=== PATIENT | male | born 1995 | race Caucasian/White ===

== ENCOUNTER 2024-05-21 14:47 | Emergency (ER) | payer OTHER, BC ==
[2024-05-21 15:02] VITALS: RESP 18; TEMP 98.6
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
[2024-05-21] MEDS: KETOROLAC 15 MG/ML 1 ML VIAL IM STA (17:07)
[2024-05-21] MEDS: ACETAMINOPHEN TAB 500 MG TAB PO STA (17:08)
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
[2024-05-21 18:03] VITALS: BP 123/76; PULSE 79
== END 2024-05-21 18:04 | disposition home or self-care (01) ==
LOC: EC 14:47
DX: S63.92XA Sprain of unspecified part of left wrist and hand, initial encounter (principal); M25.511 Pain in right shoulder; V49.40XA Driver injured in collision with unspecified motor vehicles in traffic accident, initial encounter; Y92.410 Unspecified street and highway as the place of occurrence of the external cause
CPT/HCPCS: 73000; 73130; 71046; 72125; 70450; 99285; 96372; J1885

== ENCOUNTER 2024-10-04 07:21 | Emergency (ER) | payer BC ==
[2024-10-04] MEDS: LIDOCAINE 1% INJ 10MG/ML (20 ML MDV) SQ ONE (07:33)
--- NOTE | 2024-10-04 07:33 | ED ---
ENT HPI - General Chief complaint: Dental/Oral Stated complaint: facial swelling Time Seen by Provider: 10/04/24 07:31 Source: patient, RN notes reviewed Mode of arrival: ambulatory Limitations: no limitations - History of Present Illness Initial comments: 29-year-old male presenting to the ER with a chief complaint of right cheek swelling. Patient states last night he started noticed pain in his right upper teeth. He states this morning he noticed significant swelling to his right cheek and increase in pain. He states he does not follow-up regularly with a dentist. He denies any drainage, foul taste, difficulty swallowing or breathing. Denies tongue swelling. Patient does report he has poor oral hygiene and a fractured tooth on that side. He denies any recent antibiotic use. Denies any fevers, chills, night sweats or other complaints. - Related Data Previous Rx's Medication Instructions Recorded Amoxic-Pot Clav 875-125Mg 1 tab PO Q12HR 7 Days #14 tab 10/04/24 [Augmentin 875-125] Allergies Allergy/AdvReac Type Severity Reaction Status Date / Time No Known Allergies Allergy Verified 05/21/24 15:03 Review of Systems ROS Statement: Those systems with pertinent positive or pertinent negative responses have been documented in the HPI. ROS Other: All systems not noted in ROS Statement are negative. Past Medical History Past Medical History: No Reported History Past Surgical History: No Surgical Hx Reported Smoking Status: Never smoker Past Alcohol Use History: None Reported Past Drug Use History: None Reported General Exam Limitations: no limitations General appearance: alert, in no apparent distress ENT exam: Present: other (Multiple dental caries with fractured teeth. There is a drainable abscess to right upper jaw. No drainage present right cheek swelling and tenderness. No overlying skin changes. Oropharynx patent. No tongue swelling.) Neck exam: Present: normal inspection. Absent: tenderness, meningismus, lymphadenopathy Respiratory exam: Present: normal lung sounds bilaterally. Absent: respiratory distress, wheezes, rales, rhonchi, stridor Cardiovascular Exam: Present: regular rate, normal rhythm, normal heart sounds. Absent: systolic murmur, diastolic murmur, rubs, gallop, clicks Neurological exam: Present: alert, oriented X3, CN II-XII intact Skin exam: Present: warm, dry, intact, normal color. Absent: rash Course Vital Signs 10/04/24 10/04/24 07:22 08:07 Temperature 99.6 F 98.9 F Pulse Rate 100 91 Respiratory 20 18 Rate Blood Pressure 139/87 131/79 O2 Sat by Pulse 98 98 Oximetry Procedures - Incision & Drainage Consent Obtained: verbal consent Indication: dental abscess Site: oral Size (cm): 2 Anesthetic Used: lidocaine 1%, without epi Amount (mLs): 1 Sterile Field Used?: Yes Scalpel Used: #11 Ultrasound used: No Needle Aspiration Performed?: Yes I&D Drainage Obtained: Pus, Blood Insertion of drain: No Patient Tolerated Procedure: well Medical Decision Making - Medical Decision Making Was pt. sent in by a medical professional or institution (, ADEN, SUPERVISOR [employer], urgent care, hospital, or skilled nursing...) When possible be specific @ -No Did you speak to anyone other than the patient for history (EMS, parent, family, police, friend...)? What history was obtained from this source @ -No Did you review nursing and triage notes (agree or disagree)? Why? @ -I reviewed and agree with nursing and triage notes Were old charts reviewed (outside hosp., previous admission, EMS record, old EKG, old radiological studies, urgent care reports/EKG's, skilled nursing records)? Report findings @ -No old charts were reviewed Differential Diagnosis (chest pain, altered mental status, abdominal pain women, abdominal pain men, vaginal bleeding, weakness, fever, dyspnea, syncope, headache, dizziness, GI bleed, back pain, seizure, CVA, palpatations, mental health, musculoskeletal)? @ -Dental abscess, fractured tooth, pulpitis, Harrison angina... This list is not meant to be all-inclusive EKG interpreted by me (3pts min.). @ -None done X-rays interpreted by me (1pt min.). @ -None done CT interpreted by me (1pt min.). @ -None done U/S interpreted by me (1pt. min.). @ -None done What testing was considered but not performed or refused? (CT, X-rays, U/S, labs)? Why? @ -None What meds were considered but not given or refused? Why? @ -None Did you discuss the management of the patient with other professionals (professionals i.e. , ADEN, SU[employer], lab, RT, psych nurse, high school social studies tutor, shipping and receiving coordinator, teacher, surveillance sensor officer, rn case mgr)? Give summary @ -No Was smoking cessation discussed for >3mins.? @ -No Was critical care preformed (if so, how long)? @ -No Were there social determinants of health that impacted care today? How? (Homelessness, low income, unemployed, alcoholism, drug addiction, transportation, low edu. Level, literacy, decrease access to med. care, fpc, rehab)? @ -No Was there de-escalation of care discussed even if they declined (Discuss DNR or withdrawal of care, Hospice)? DNR status @ -No What co-morbidities impacted this encounter? (DM, HTN, Smoking, COPD, CAD, Cancer, CVA, ARF, Chemo, Hep., AIDS, mental health diagnosis, sleep apnea, morbid obesity)? @ -None Was patient admitted / discharged? Hospital course, mention meds given and route, prescriptions, significant lab abnormalities, going to OR and other pertinent info. @ -Discharged. 29-year-old male presented to the ER for chief complaint of right cheek swelling. History and physical exam completed. Vitals stable. Patient appears well-developed and well-nourished in no signs of acute distress. Poor dentition noted on exam with area of edema and fluctuance adjacent to right 2nd upper molar. Edema and tenderness noted to right cheek. Findings consistent with a dental abscess. No oropharynx or tongue swelling. Oropharynx is patent. I&D performed with expressed purulent drainage. Patient will be started Augmentin, first dose in the ER. I strongly recommended patient follow- up with a dentist in the next 24 to 48 hours for recheck, referral given. Strict return parameters discussed. Patient discharged in stable condition with follow-up to PCP. Patient verbally expressed understanding and agreement with care plan. Case discussed with ED attending, Dr. White. Undiagnosed new problem with uncertain prognosis? @ -No Drug Therapy requiring intensive monitoring for toxicity (Heparin, Nitro, Insulin, Cardizem)? @ -No Were any procedures done? @ -Yes, I&D Diagnosis/symptom? @ -Dental abscess Acute, or Chronic, or Acute on Chronic? @ -Acute Uncomplicated (without systemic symptoms) or Complicated (systemic symptoms)? @ -Uncomplicated Side effects of treatment? @ -No Exacerbation, Progression, or Severe Exacerbation? @ -No Poses a threat to life or bodily function? How? (Chest pain, [place], [place], pneumonia, PE, COPD, DKA, ARF, appy, cholecystitis, CVA, Diverticulitis, Homicidal, Suicidal, threat to staff... and all critical care pts) @ -No Disposition Clinical Impression: Dental abscess Disposition: HOME SELF-CARE Condition: Stable Instructions (If sedation given, give patient instructions): Dental Abscess (ED) Additional Instructions: Follow-up with a dentist in the next 24 to 48 hours. Continue to massage cheek to aid with drainage. Take Augmentin as prescribed. You may take OTC Tylenol and Motrin for pain control. Return to the ER for any new to worsening symptoms. Prescriptions: Amoxic-Pot Clav 875-125Mg [Augmentin 875-125] 1 tab PO Q12HR 7 Days #14 tab Is patient prescribed a controlled substance at d/c from ED?: No Referrals: None,Stated [Primary Care Provider] - 1-2 days Ludwig Prasad DDS [STAFF PHYSICIAN] - 1-2 days Kaitlynn Mendes DDS [STAFF PHYSICIAN] - 1-2 days Forms: Area PCPs Time of Disposition: 07:50
[2024-10-04] MEDS: AMOXIC-POT CLAV 875-125MG 1 EACH TAB PO STA (07:53)
[2024-10-04 08:08] VITALS: BP 131/79; PULSE 91; RESP 18; TEMP 98.9
== END 2024-10-04 08:09 | disposition home or self-care (01) ==
LOC: EC 07:21
DX: K04.7 Periapical abscess without sinus (principal)
CPT/HCPCS: 99282; J2003